=== PATIENT | male | born 1985 | race Caucasian/White ===

== ENCOUNTER 2018-05-08 11:58 | Emergency (ER) | payer MEDICAID ==
[2018-05-08] MEDS ORDERED: NS 1,000 ML IV ONE (13:31)
[2018-05-08] MEDS ORDERED: HYDROmorphONE/DILAUDID 2 MG/ML INJ IVP ONE (13:31)
--- NOTE | 2018-05-08 13:31 | EDPHY ---
H & P Time Seen by Provider: 05/08/18 13:25 HPI/ROS: Chief complaint. Fall HPI. 32-year-old male was hanging plastic and slipped off a ladder because of what shoes. He fell 5 ft landing on his bottom. He has low back pain and right thigh numbness. Did not strike his head or lose consciousness. No neck pain or mid back pain. No chest discomfort or trouble breathing. No abdominal pain. No injury to arms or left leg. He does have a history of some low back pain. No previous back surgery ROS 10 systems were reviewed and negative with the exception of the elements mentioned in the history of present illness Past Medical/Surgical History: Healthy Social History: Single, nonsmoker, no alcohol Smoking Status: Current every day smoker Physical Exam: General Appearance: Alert well-developed male moderate distress vital signs stable Eyes: Pupils equal and round no pallor or injection. ENT, Mouth: Mucous membranes are moist. Respiratory: There are no retractions, lungs are clear to auscultation. Cardiovascular: Regular rate and rhythm. Gastrointestinal: Abdomen is soft and nontender, no masses, bowel sounds normal. Neurological: Awake and alert, sensory and motor exams grossly normal. Skin: Warm and dry, no rashes. Musculoskeletal: Neck is nontender. No T-spine tenderness. Pain in the lumbar spine Extremities symmetrical, full range of motion. Psychiatric: Patient is oriented X 3, there is no agitation. Constitutional: Initial Vital Signs Temperature (C) 36.5 C 05/08/18 12:01 Heart Rate 74 05/08/18 12:01 Respiratory Rate 19 05/08/18 12:01 Blood Pressure 161/90 H 05/08/18 12:01 O2 Sat (%) 95 05/08/18 12:01 O2 Delivery Mode Room Air Allergies/Adverse Reactions: acetaminophen [From Vicodin] Allergy (Verified 05/08/18 12:06) hydrocodone [From Vicodin] Allergy (Verified 05/08/18 12:06) Home Medications: Medication Instructions Recorded Cyclobenzaprine [Flexeril 10 MG 10 mg PO TID PRN #15 tab 05/08/18 (*)] Lidocaine 4%/Menthol 1% [Icy Hot 1 patch TD DAILY #12 patch 05/08/18 Lidocaine/Menthol 4%/1% Patch (*)] oxyCODONE IR 15 mg 05/08/18 Medical Decision Making - Diagnostics Imaging Results: Imaging Impressions Lumbar Spine CT 05/08/18 13:31 Impression: 1. No evidence for acute fracture. 2. Partially sacralized L6 as above described. 3. 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 Findings and recommendations discussed with Dr. Jack Leiva at 2:15 PM hour, 05/08/2018. Final report concurs with initial preliminary interpretation. Lumbar spine CT shows no evidence for fracture Procedures: IV normal saline. Dilaudid for pain Lidocaine patch, ibuprofen, 5 mg of Valium orally ED Course/Re-evaluation: Re-evaluation 2:35 p.m.. Patient and I discussed imaging and lab results. We discussed treatment plan including criteria for return importance of follow-up and further evaluation. He expresses understanding and agreement Patient tells me he does have pain medication at home Differential Diagnosis: I considered fracture, cord compromise, HNP - Data Points Laboratory Results: Laboratory Results 05/08/18 13:35 05/08/18 13:35 05/08/18 05/08/18 05/08/18 14:10 13:35 13:35 WBC 6.11 10^3/uL 10^3/uL (3.80-9.50) RBC 4.98 10^6/uL 10^6/uL (4.40-6.38) Hgb 15.4 g/dL g/dL (13.7-17.5) Hct 45.8 % % (40.0-51.0) MCV 92.0 fL fL (81.5-99.8) MCH 30.9 pg pg (27.9-34.1) MCHC 33.6 g/dL g/dL (32.4-36.7) RDW 12.9 % % (11.5-15.2) Plt Count 192 10^3/uL 10^3/uL (150-400) MPV 9.7 fL fL (8.7-11.7) Neut % (Auto) 42.7 % % (39.3-74.2) Lymph % (Auto) 46.3 % H % (15.0-45.0) [place] % (Auto) 7.7 % % (4.5-13.0) Eos % (Auto) 2.3 % % (0.6-7.6) Baso % (Auto) 0.8 % % (0.3-1.7) Nucleat RBC Rel Count 0.0 % % (0.0-0.2) Absolute Neuts (auto) 2.61 10^3/uL 10^3/uL (1.70-6.50) Absolute Lymphs (auto) 2.83 10^3/uL 10^3/uL (1.00-3.00) Absolute Monos (auto) 0.47 10^3/uL 10^3/uL (0.30-0.80) Absolute Eos (auto) 0.14 10^3/uL 10^3/uL (0.03-0.40) Absolute Basos (auto) 0.05 10^3/uL 10^3/uL (0.02-0.10) Absolute Nucleated RBC 0.00 10^3/uL 10^3/uL (0-0.01) Immature Gran % 0.2 % % (0.0-1.1) Immature Gran # 0.01 10^3/uL 10^3/uL (0.00-0.10) Sodium 138 mEq/L mEq/L (135-145) Potassium 4.4 mEq/L mEq/L (3.5-5.2) Chloride 107 mEq/L mEq/L (97-110) Carbon Dioxide 25 mEq/l mEq/l (22-31) Anion Gap 6 mEq/L mEq/L (6-14) BUN 16 mg/dL mg/dL (7-23) Creatinine 0.9 mg/dL mg/dL (0.7-1.3) Estimated GFR > 60 Glucose 82 mg/dL mg/dL (70-100) Calcium 9.2 mg/dL mg/dL (8.5-10.4) Urine Color YELLOW Urine Appearance CLEAR Urine pH 5.0 (5.0-7.5) Ur Specific [place] 1.018 (1.002-1.030) Urine Protein NEGATIVE (NEGATIVE) Urine Ketones NEGATIVE (NEGATIVE) Urine Blood NEGATIVE (NEGATIVE) Urine Nitrate NEGATIVE (NEGATIVE) Urine Bilirubin NEGATIVE (NEGATIVE) Urine Urobilinogen NEGATIVE EU EU (0.2-1.0) Ur Leukocyte Esterase NEGATIVE (NEGATIVE) Urine Glucose NEGATIVE (NEGATIVE) Medications Given: Discontinued Medications Hydromorphone HCl (Dilaudid) 1 mg IVP EDNOW ONE Stop: 05/08/18 13:32 Last Admin: 05/08/18 13:40 Dose: 1 mg Sodium Chloride (Ns) 1,000 mls @ 0 mls/hr IV ONCE ONE; Wide Open PRN Reason: Protocol Stop: 05/08/18 13:32 Last Admin: 05/08/18 13:40 Dose: 1,000 mls Departure - Departure Disposition: Home, Routine, Self-Care Clinical Impression: Lumbar strain Qualifiers: Encounter type: initial encounter Qualified Code(s): S39.012A - Strain of muscle, fascia and tendon of lower back, initial encounter Condition: Good Instructions: Low Back Strain (ED) Additional Instructions: Ibuprofen 600 mg every 6 hr for discomfort Flexeril as muscle relaxer Lidocaine patch to help with pain in your low back May use your regular pain medication in addition Ice to sore area next 24 hr then apply heat Return for worsening symptoms including leg weakness, bowel or bladder symptoms Re-evaluation in 3-4 days if not improved Referrals: NONE *PRIMARY CARE P,. [Primary Care Provider] - As per Instructions Trini Lyn MD [Medical Doctor] - 3-4 days, if not improved Prescriptions: Cyclobenzaprine [Flexeril 10 MG (*)] 10 mg PO TID PRN #15 tab PRN Reason: Spasms Lidocaine 4%/Menthol 1% [Icy Hot Lidocaine/Menthol 4%/1% Patch (*)] 1 patch TD DAILY #12 patch
[2018-05-08 13:56] LABS: PLATELET COUNT 192 10^3/uL (150-400)
[2018-05-08] MEDS ORDERED: DIAZEPAM 5 MG TAB PO ONE (14:38)
[2018-05-08] MEDS ORDERED: IBUPROFEN 600 MG TAB PO ONE (14:38)
[2018-05-08] MEDS ORDERED: LIDOCAINE 4%/MENTHOL 1% PATCH TD ONE (14:38)
[2018-05-08 14:54] VITALS: BP 145/82
[2018-05-08] MEDS ORDERED: PATCH REMOVAL 1 EA PATCH TD SCH (21:00)
== END 2018-05-08 14:53 | disposition home or self-care (01) ==
DX: S39.012A Strain of muscle, fascia and tendon of lower back, initial encounter (principal); W11.XXXA Fall on and from ladder, initial encounter; Y92.9 Unspecified place or not applicable; Y99.9 Unspecified external cause status; Y93.9 Activity, unspecified
CPT/HCPCS: 96374; J1170